=== PATIENT | male | born 1970 | race Caucasian/White ===

== ENCOUNTER → 2024-11-21 | Outpatient (CLI) | payer MEDICAID, SELFPAY ==
--- NOTE | 2024-11-21 16:00 | XR_ITS ---
Examination: CTA carotids with intravenous contrast CTA brain, head with intravenous contrast. 2-D sagittal, coronal reconstructions. 3-D reconstructions. Exam date and time: November 21, 2024 1611 hrs. Indications: History traumatic subdural hematoma with loss of consciousness May 2024, followed by weakness in the left upper extremity CTDI: vol (mGy) 63.6 DLP: (mGycm) 527 Technique: Multiple CTA axial brain, head carotid images post intravenous contrast injection 75 cc, [id number]. 2-D sagittal, coronal reconstructions. 3-D reconstructions, 3-D post processing including vascular maximum intensity projection images. Low dose protocols were performed. One or more of the following dose reduction techniques were used; automated exposure control, adjustment of the mA and/or KV according to patient size, use of iterative reconstruction technique. Findings: No significant common carotid carotid bifurcation or internal carotid artery stenoses Dominant right vertebral artery, atretic left vertebral artery with no critical stenoses Juxtasellar supraclinoid portions internal carotid arteries intact No large vessel occlusions middle cerebral anterior cerebral and posterior cerebral branches Basilar artery does fill Impression: No significant neck arterial stenoses No cerebral large vessel arterial occlusions or thrombus
== END | disposition home or self-care (01) ==
DX: S06.5XAA Traumatic subdural hemorrhage with loss of consciousness status unknown, initial encounter (principal); X58.XXXA Exposure to other specified factors, initial encounter
CPT/HCPCS: 70496; 70498; A4649; Q9967